=== PATIENT | male | born 1975 | race Caucasian/White ===

== ENCOUNTER → 2018-07-19 | Outpatient (CLI) | payer BC, OTHER ==
--- NOTE | 2018-07-19 08:09 | Diagnostic Imaging Report ---
PROCEDURE: US Gallbladder. TECHNIQUE: Multiple real-time grayscale images were obtained over the right upper quadrant in various projections. INDICATION: Epigastric pain. The liver parenchyma is homogeneous with normal echotexture. The gallbladder is clear with no stones or wall thickening. The common duct is not dilated. The portal vein is patent with hepatopetal flow. Right kidney measures 8.4 cm in length and appears grossly normal. There is no ascites. The pancreas is obscured by bowel gas. IMPRESSION: Negative gallbladder sonogram. Dictated by: Dictated on workstation # [id number]
== END ==
LOC: RAD 06:43
PROVIDERS: ATTEND Nurse Practitioner Community Health
DX: R10.13 Epigastric pain (principal)
CPT/HCPCS: 76705

== ENCOUNTER → 2018-08-03 | Outpatient (CLI) | payer OTHER ==
[~2018-08-03] MED LIST: CATHETER FLUSH 10 ML SYR IV PRN
--- NOTE | 2018-08-03 14:20 | Diagnostic Imaging Report ---
INDICATION: Epigastric pain. TECHNIQUE: Acquisitions were acquired of the abdomen after administration of 5.33 mCi of technetium-99m Choletec. FINDINGS: There is homogeneous uptake of the isotope throughout the liver. There is significant accumulation within the gallbladder by 30 minutes. There is free flow of activity in the small bowel. The ejection fraction is 36.6%. IMPRESSION: No evidence of cystic duct obstruction with lower limits of normal ejection fraction of 36.6%. Dictated by: Dictated on workstation # [id number]
== END ==
LOC: CARD 11:31
PROVIDERS: ATTEND Nurse Practitioner Community Health
DX: R10.13 Epigastric pain (principal)
CPT/HCPCS: 78227

== ENCOUNTER 2018-09-24 05:48 | Outpatient (CLI) | payer OTHER ==
[~2018-09-24] VITALS: Ht 175.3 cm; Wt 88.5 kg
[2018-09-24] MEDS ORDERED: MELO15TA39 PO (09:06)
[2018-09-24] MEDS ORDERED: TIZA4TAB4 PO (09:06)
[2018-09-24] MEDS ORDERED: PANT20TA3 PO (09:06)
[2018-09-24] MEDS ORDERED: GABA-488 PO (09:06)
== END 2018-09-24 09:22 | disposition home or self-care (01) ==
LOC: PREOP 05:48
PROVIDERS: ATTEND Surgery
DX: Z01.818 Encounter for other preprocedural examination (principal)

== ENCOUNTER 2018-10-03 07:04 | Day surgery (SDC) | payer OTHER ==
[~2018-10-03] VITALS: Ht 175.3 cm; Wt 88.5 kg
[2018-10-03] VITALS (11 sets, daily range): BP systolic 116–145; BP diastolic 63–121
[~2018-10-03 07:04] MED LIST changes: -CATHETER FLUSH 10 ML SYR IV PRN; +GABA-488 PO; +MELO15TA39 PO; +PANT20TA3 PO; +TIZA4TAB4 PO
[2018-10-03] MEDS ORDERED: IOPAMIDOL 61% 30 ML (ISOVUE 300) VIAL IV ONE (07:17)
[2018-10-03] MEDS ORDERED: BUP/EPI 0.5% 1:200,000 (MARCAINE) 10ML VIAL IJ ONE (07:17)
[2018-10-03] MEDS: LACTATED RINGERS 1,000 ML IV PRN ×2 (07:25→09:07)
[2018-10-03] MEDS ORDERED: CATHETER FLUSH 10 ML SYR IV PRN (07:30)
[2018-10-03] MEDS ORDERED: ceFAZolin 2 GM/50 ML NS 50 ML IV ONE (07:30)
[2018-10-03 07:34] LABS: BASOPHILS # (AUTO) 0.1 10^3/uL (0.0-0.1); BASOPHILS % (AUTO) 1 % (0-10); EOSINOPHILS % (AUTO) 1 % (0-10); HEMATOCRIT 44 % (40-54); HEMOGLOBIN 15.3 G/DL (13.3-17.7); LYMPHOCYTES # (AUTO) 2.3 X 10^3 (1.0-4.0); LYMPHOCYTES % (AUTO) 37 % (12-44); MEAN CORPUSCULAR HEMOGLOBIN 29 PG (25-34); MEAN CORPUSCULAR HGB CONC 35 G/DL (32-36); MEAN CORPUSCULAR VOLUME 84 FL (80-99); MEAN PLATELET VOLUME 9.4 FL (7.4-10.4); MONOCYTES # (AUTO) 0.5 X 10^3 (0.0-1.0); MONOCYTES % (AUTO) 7 % (0-12); NEUTROPHILS # (AUTO) 3.4 X 10^3 (1.8-7.8); NEUTROPHILS % (AUTO) 54 % (42-75); PLATELET COUNT 231 10^3/uL (130-400); RED CELL DISTRIBUTION WIDTH 12.2 % (10.0-14.5); WHITE BLOOD COUNT 6.2 10^3/uL (4.3-11.0)
--- NOTE | 2018-10-03 07:51 | Progress Note-Pre Operative ---
Pre-Operative Progress Note H&P Reviewed The H&P was reviewed, patient examined and no changes noted. Date Seen by Provider: Oct 03, 2018 Time Seen by Provider: 07:51 Date H&P Reviewed: Oct 03, 2018 Time H&P Reviewed: 07:51 Pre-Operative Diagnosis: epigastric abd pain, biliary dyskinesia BOLIVAR DIAL DO Oct 03, 2018 07:51
[2018-10-03] MEDS ORDERED: FAMOTIDINE 20MG/2ML IV (PEPCID) ONE (08:05)
[2018-10-03] MEDS ORDERED: FAMOTIDINE 20MG/2ML IV (PEPCID) IV ONE (08:30)
[2018-10-03] MEDS ORDERED: FAMOTIDINE 20MG/2ML IV (PEPCID) IVP ONE (08:30)
[2018-10-03] MEDS ORDERED: MIDAZOLAM 2 MG/2 ML (VERSED) VIAL ONE (08:37)
[2018-10-03] MEDS ORDERED: fentaNYL INJECTION 100 MCG/2 ML AMP ONE ×2 (08:37→09:37)
[2018-10-03] MEDS ORDERED: LIDOCAINE PF 2% 5 ML (XYLOCAINE) VIAL ONE (08:45)
[2018-10-03] MEDS ORDERED: ROCURONIUM 10 MG/ML 5 ML SYRINGE IV ONE (08:45)
[2018-10-03] MEDS ORDERED: DEXAMETHASONE 10 MG/ML (DECADRON) 1 ML VIAL ONE (08:45)
[2018-10-03] MEDS ORDERED: ONDANSETRON 4 MG/2 ML (SDV) Z0FRAN ONE (08:45)
[2018-10-03] MEDS ORDERED: SEVOFLURANE (ULTANE) 15 ML INHAL SOLN ONE ×4 (08:45→09:31)
[2018-10-03] MEDS ORDERED: proPOfol 200 MG/20 ML (DIPRIVAN) VIAL IV ONE (08:45)
--- NOTE | 2018-10-03 09:37 | Progress Note-Post Operative ---
Post-Operative Progess Note Surgeon (s)/Leather Flesher (s) Surgeon BOLIVAR DIAL DO Leather Flesher: Dr. Hanna Pre-Operative Diagnosis epigastric abd pain, biliary dyskinesia Post-Operative Diagnosis same Procedure & Operative Findings Date of Procedure 10/03/18 Procedure Performed/Findings lap glenroy c ioc Anesthesia Type gen Estimated Blood Loss Estimated blood loss (mL): min Specimens/Packing Specimens Removed gallbladder BOLIVAR DIAL DO Oct 03, 2018 09:37
[2018-10-03] MEDS ORDERED: DOCU-143 PO (09:38)
[2018-10-03] MEDS ORDERED: ACHD5005 PO (09:38)
--- NOTE | 2018-10-03 09:39 | Discharge Inst-Simple/Standard ---
Discharge Inst-Standard Discharge Medications New, Converted or Re-Newed RX: RX on Chart Patient Instructions/Follow Up Plan of Care/Instructions/FU: 2 weeks Lenka Activity as Tolerated: No Discharge Diet: Regular Diet Other Inst to Patient Follow up Appt: Make appointment for 2 weeks. Instructions: No lifting greater than 10 pounds. No strenuous activity. May shower in 24 hours, no tub bath or soaking. Use incentive spirometer at home as directed. No Smoking Skin/Wound Care: You have special glue over incisions it will fall off on its own. Symptoms to Report: Appetite Changes, Extremity Discoloration, Numbness/Tingling, Swelling Increased, Bleeding Excessive, Eyesight Changes, Pain Increased, Urine Color Change, Constipation(Persistent), Fever over 101 degree F, Pain/Pressure in chest, Urinating Difficulty, Cough Up/Vomit Blood, Heart Beat Irreg/Pounding, Pain/Pressure in jaw, Vaginal Bleeding Increase, Cramps in feet or legs, Lightheadedness, Pain/Pressure in shoulder, Diarrhea(Persistent), Memory Changes Suddenly, Questions/Concerns, Weight gain consecutive days, Dizziness/Fainting, Nausea/Vomiting, Shortness of Breath, Weight gain over 2 pounds. If eyes or skin turn yellow notify physician. If questions or concerns contact your physician Or seek help at emergency department. BOLIVAR DIAL DO Oct 03, 2018 09:39
[2018-10-03] MEDS ORDERED: HYDROmorphone 2 MG/ML VIAL (DILAUDID) ONE (09:51)
[2018-10-03] MEDS ORDERED: HYDROmorphone 2 MG/ML VIAL (DILAUDID) IV ONE (10:00)
[2018-10-03] MEDS ORDERED: ONDANSETRON 4 MG/2 ML (SDV) Z0FRAN IVP PRN (10:00)
[2018-10-03] MEDS ORDERED: morphine INJ 10 MG/ML 1ML (SYR OR VIAL) IVP ONE (10:00)
[2018-10-03] MEDS ORDERED: HYDROcodone/APAP 5 MG/325 MG (LORTAB) TAB PO ONE (12:15)
--- NOTE | 2018-10-03 12:24 | Diagnostic Imaging Report ---
Fluoroscopy INDICATION: Abdominal pain Fluoroscopic assistance was provided for Dr. Og during a laparoscopic cholecystectomy procedure. 12 seconds of fluoroscopy time was utilized. 27 spot films of the right upper quadrant were obtained. There are laparoscopic devices in place. There has been opacification of the common bile duct via a cyst duct catheter. Contrast is seen extending through the duct into the small bowel. The duct, where visualized shows no defect that would indicate a retained calculus. The proximal portion of the left biliary tree was obscured by one of the instruments however. IMPRESSION: Fluoroscopic assistance was provided for Dr. Og. Dictated by: Dictated on workstation # [id number]
--- NOTE | 2018-10-03 13:39 | Anesthesia-General Post-Op ---
General Patient Condition Mental Status/LOC: Same as Preop Cardiovascular: Satisfactory Nausea/Vomiting: Absent Respiratory: Satisfactory Pain: Controlled Complications: Absent Post Op Complications Complications None Follow Up Care/Instructions Patient Instructions None needed. Anesthesia/Patient Condition Patient Condition Patient is doing well, no complaints, stable vital signs, no apparent adverse anesthesia problems. No complications reported per nursing. APOORVA PICHARDO CRNA Oct 03, 2018 13:39
--- NOTE | 2018-10-03 14:03 | OPERATIVE REPORT ---
DATE OF SERVICE: 10/03/2018 PREOPERATIVE DIAGNOSES: Epigastric abdominal pain, biliary dyskinesia. POSTOPERATIVE DIAGNOSES: Epigastric abdominal pain, biliary dyskinesia. PROCEDURE: Laparoscopic cholecystectomy with intraoperative cholangiogram. SURGEON: Deshawn Og DO VOCAL MUSIC TEACHER: Dr. Hanna, assisted in retraction, dissection and closure. ANESTHESIA: General. ESTIMATED BLOOD LOSS: Minimal. COMPLICATIONS: None. INDICATIONS: The patient is a 43-year-old male with epigastric abdominal pain. Workup consistent with biliary dyskinesia. He understands risks and benefits of procedure and wished to proceed with procedure. Consent was signed in the chart. DESCRIPTION OF PROCEDURE: The patient was taken to the operating suite, prepped and draped in sterile fashion. Timeout was performed. Local anesthetic was infiltrated before incisions. A 12 mm incision was made just above the umbilicus. Cautery was used to dissect down to the fascia, which was then scored, grasped, elevated and the abdomen was entered. An 0 Vicryl was placed in a [id number] fashion for closure at the end of the case. Balloon trocar was inserted in the abdomen and pneumoperitoneum was achieved. Under direct visualization of the laparoscope, a 5 mm trocar was placed in subxiphoid region and two 5 mm trocars were placed in the right upper quadrant. Gallbladder was grasped, elevated. The cystic duct and cystic artery were then dissected out. Clips were placed on the proximal and distal portion of the cystic artery. A clip was placed on distal portion of the cystic duct and the duct was then partially transected. Arrow catheter was inserted into the duct and cholangiogram was performed. There were no filling defects. Contrast made its way into the duodenum without difficulty. Catheter was removed. Clips were placed on the proximal portion of the cystic duct and the duct and the artery were then completely transected. Hook cautery used to dissect the gallbladder from the gallbladder fossa achieving hemostasis. Once removed, it was placed in an Endobag and removed through the 12 mm trocar site. Abdomen was irrigated and suctioned with copious amounts of irrigation. Again, hemostasis was achieved. The abdomen was then desufflated, the trocars were removed. The 0 Vicryl was placed in a btiwez-ky-amwpe fashion for the closure at the 12 mm incision was then tied closing the defect. The skin was then closed using 4-0 Monocryl in a subcuticular fashion. The abdomen was then washed and dried and Skin Affix was placed over the incisions. The patient tolerated procedure well without any complications. He was taken to recovery room in stable condition. The patient will follow up in 2 weeks. Any issues before that will be seen at that time. Job ID: [id number] DocumentID: [id number] Dictated Date: 10/03/2018 09:49:42 Pharmacy Account Director Date: 10/03/2018 14:03:13 Dictated By: DO GABY ALVARADO
--- NOTE | 2018-10-03 14:56 | NUR ---
Support provided to the pt's , Madina,during pt's procedure. The pt's is an employee of [employer]. The family is [place]ae[place], and demonstrate strong, mutual support.
== END 2018-10-03 12:55 | disposition home or self-care (01) ==
LOC: SDC 07:04
PROVIDERS: ATTEND Surgery
DX: K81.1 Chronic cholecystitis (principal); K82.8 Other specified diseases of gallbladder; K21.9 Gastro-esophageal reflux disease without esophagitis; G89.29 Other chronic pain; M54.9 Dorsalgia, unspecified; M10.9 Gout, unspecified; I10 Essential (primary) hypertension; Z82.49 Family history of ischemic heart disease and other diseases of the circulatory system; Z80.9 Family history of malignant neoplasm, unspecified; Z83.6 Family history of other diseases of the respiratory system; Z79.891 Long term (current) use of opiate analgesic
CPT/HCPCS: 36415; 85025; 87081; 88304

== ENCOUNTER 2020-11-07 17:05 | Emergency (ER) | payer OTHER ==
[~2020-11-07] VITALS: Ht 175 cm; Wt 86.0 kg
[~2020-11-07 17:05] MED LIST changes: +ACHD5005 PO; +DOCU-143 PO; +PANT20TA18 PO; -PANT20TA3 PO
[2020-11-07] MEDS ORDERED: KETOROLAC 30 MG/ML VIAL IVP ONE (17:15)
[2020-11-07] MEDS ORDERED: NS IV 1000 ML 1,000 ML IV SCH (17:15)
--- NOTE | 2020-11-07 17:18 | ED GU-Male ---
General Stated Complaint: LOWER BACK/ABD/TESTICULAR PAIN Source: patient Exam Limitations: no limitations (GIANNA MOY APRN) History of Present Illness Date Seen by Provider: Nov 07, 2020 Time Seen by Provider: 17:16 Initial Comments to ER with midline low back pain that began rather suddenly yesterday. Today the pain persists but it has now spread to the anterior low abdomen and to both testicles. He has urinary frequency. No nausea vomiting fevers or chills no history of this. He has chronic loose stools after his cholecystectomy. Timing/Duration: constant Severity/Quality: moderate Location: unknown Radiation: none Activities at Onset: none Sexual Coxton History: not active Associated Symptoms: denies symptoms (GIANNA MOY APRN) Allergies and Home Medications Allergies Coded Allergies: No Known Drug Allergies (Unverified , 09/24/18) Patient Home Medication List Home Medication List Reviewed: Yes (GIANNA MOY APRN) Docusate Sodium (Colace) 100 Mg Capsule, 100 MG PO BID Prescribed by: BOLIVAR DIAL on 10/03/18 09 Gabapentin (Gabapentin) 300 Mg Capsule, 300 MG PO TID, (Reported) Entered as Reported by: MADAN MADRIGAL on 09/24/18 09 Hydrocodone Bit/Acetaminophen (Lortab 5 Mg Tablet) 1 Tab Tab, 1-2 TAB PO Q6H PRN for PAIN-MODERATE Prescribed by: BOLIVAR DIAL on 10/03/18 09 Hydrocodone/Acetaminophen (Hydrocodone-Acetamin 5-325 mg) 1 Each Tablet, 1 TAB PO Q4H PRN for PAIN-MODERATE (5-7) Prescribed by: GIANNA MOY on 11/08/20 123 Last Action: New Order Ibuprofen (Ibuprofen) 800 Mg Tablet, 800 MG PO Q8H PRN for PAIN-MILD Prescribed by: GIANNA MOY on 11/08/20 1230 Last Action: New Order Pantoprazole Sodium (Pantoprazole Sodium) 20 Mg Tablet.dr, 20 MG PO DAILY, (Reported) Entered as Reported by: MADAN MADRIGAL on 09/24/18 09 Sulfamethoxazole/Trimethoprim (Bactrim Ds Tablet) 1 Each Tablet, 1 EACH PO BID Prescribed by: GIANNA MOY on 11/08/20 1230 Last Action: New Order Tamsulosin HCl (Flomax) 0.4 Mg Cap, 0.4 MG PO DAILY Prescribed by: GIANNA MOY on 11/08/20 1230 Last Action: New Order Tizanidine HCl (Tizanidine HCl) 4 Mg Tablet, 6 MG PO BID, (Reported) Entered as Reported by: MADAN MADRIGAL on 09/24/18 0906 Review of Systems Review of Systems Constitutional: see HPI EENTM: see HPI Respiratory: no symptoms reported Cardiovascular: no symptoms reported Genitourinary: see HPI Musculoskeletal: no symptoms reported Skin: no symptoms reported Psychiatric/Neurological: No Symptoms Reported Endocrine: No Symptoms Reported Hematologic/Lymphatic: No Symptoms Reported (GIANNA MOY APRN) Past Yzdxgzq-Bnkivx-Ahzvbs Hx Seasonal Allergies Seasonal Allergies: Yes (GIANNA MOY APRN) Past Medical History Surgeries: No (tooth cut out) Respiratory: No Cardiac: No Neurological: No Genitourinary: Yes (horseshoe shaped kidneys) Gastrointestinal: Yes Gastroesophageal Reflux, Gall Bladder Disease Musculoskeletal: Yes Chronic Back Pain, Gout Endocrine: No HEENT: No Cancer: No Psychosocial: No Integumentary: No Blood Disorders: No (GIANNA MOY APRN) Physical Exam Vital Signs Vital Signs - First Documented 11/07/20 11/07/20 17:08 19:38 Temp 35.9 Pulse 90 Resp 18 B/P (MAP) 129/92 (104) Pulse Ox 96 O2 Delivery Room Air (BERNARDINO,MATTHEW K DO) Vital Signs Capillary Refill : (GIANNA MOY APRN) Height, Weight, BMI Height: 5'9.00" Weight: 195lbs. 0.0oz. 88.325072id; 28.8 BMI Method: General Appearance: WD/WN, no apparent distress HEENT: PERRL/EOMI, normal ENT inspection Neck: non-tender, full range of motion Respiratory: no respiratory distress, no accessory muscle use Gastrointestinal: normal bowel sounds, non tender, soft (GIANNA MOY APRN) Progress/Results/Core Measures Suspected Sepsis SIRS Temperature: Pulse: Respiratory Rate: Laboratory Tests 11/07/20 17:15: White Blood Count 9.2 Blood Pressure / Mean: Laboratory Tests 11/07/20 17:15: Creatinine 0.91, Platelet Count 262, Total Bilirubin 0.3 (GIANNA MOY APRN) Results/Orders Lab Results Laboratory Tests Test 11/07/20 17:15 11/07/20 18:01 Range/Units White Blood Count 9.2 4.3-11.0 10^3/uL Red Blood Count 5.22 4.30-5.52 10^6/uL Hemoglobin 15.4 13.3-17.7 g/dL Hematocrit 45 40-54 % Mean Corpuscular Volume 87 80-99 fL Mean Corpuscular Hemoglobin 30 25-34 pg Mean Corpuscular Hemoglobin Concent 34 32-36 g/dL Red Cell Distribution Width 11.6 10.0-14.5 % Platelet Count 262 130-400 10^3/uL Mean Platelet Volume 9.1 9.0-12.2 fL Immature Granulocyte % (Auto) 0 % Neutrophils (%) (Auto) 64 42-75 % Lymphocytes (%) (Auto) 28 12-44 % Monocytes (%) (Auto) 6 0-12 % Eosinophils (%) (Auto) 1 0-10 % Basophils (%) (Auto) 1 0-10 % Neutrophils # (Auto) 5.9 1.8-7.8 10^3/uL Lymphocytes # (Auto) 2.6 1.0-4.0 10^3/uL Monocytes # (Auto) 0.5 0.0-1.0 10^3/uL Eosinophils # (Auto) 0.1 0.0-0.3 10^3/uL Basophils # (Auto) 0.1 0.0-0.1 10^3/uL Immature Granulocyte # (Auto) 0.0 0.0-0.1 10^3/uL Sodium Level 140 135-145 MMOL/L Potassium Level 3.8 3.6-5.0 MMOL/L Chloride Level 104 98-107 MMOL/L Carbon Dioxide Level 24 21-32 MMOL/L Anion Gap 12 5-14 MMOL/L Blood Urea Nitrogen 10 7-18 MG/DL Creatinine 0.91 0.60-1.30 MG/DL Estimat Glomerular Filtration Rate 91 BUN/Creatinine Ratio 11 Glucose Level 105 70-105 MG/DL Calcium Level 9.3 8.5-10.1 MG/DL Corrected Calcium 9.1 8.5-10.1 MG/DL Total Bilirubin 0.3 0.1-1.0 MG/DL Aspartate Amino Transf (AST/SGOT) 14 5-34 U/L Alanine Aminotransferase (ALT/SGPT) 18 0-55 U/L Alkaline Phosphatase 75 40-136 U/L Total Protein 7.0 6.4-8.2 GM/DL Albumin 4.2 3.2-4.5 GM/DL Urine Color YELLOW Urine Clarity CLEAR Urine pH 6.5 5-9 Urine Specific Wise 1.015 L 1.016-1.022 Urine Protein NEGATIVE NEGATIVE Urine Glucose (UA) NEGATIVE NEGATIVE Urine Ketones NEGATIVE NEGATIVE Urine Nitrite NEGATIVE NEGATIVE Urine Bilirubin NEGATIVE NEGATIVE Urine Urobilinogen 0.2 < = 1.0 MG/DL Urine Leukocyte Esterase NEGATIVE NEGATIVE Urine RBC (Auto) 3+ H NEGATIVE Urine RBC 25-50 H /HPF Urine WBC NONE /HPF Urine Crystals NONE /LPF Urine Bacteria NEGATIVE /HPF Urine Casts NONE /LPF Urine Mucus NEGATIVE /LPF Urine Culture Indicated NO (MATTHEW LEBRON DO) Vital Signs/I&O 11/07/20 11/07/20 17:08 19:38 Temp 35.9 Pulse 90 90 Resp 18 16 B/P (MAP) 129/92 (104) 128/94 Pulse Ox 96 99 O2 Delivery Room Air (MATTHEW LEBRON DO) Vital Signs/I&O Capillary Refill : (GIANNA MOY APRN) Departure Communication (Admissions) Family Conversation NAME: MISHA NICE [facility] REC#: [id number] PT STATUS: REG ER : 1975 PHYSICIAN: GIANNA MOY APRN ADMIT DATE: 11/07/20/ER Draft Date of Exam:11/07/20 CT ABD/PELVIS WO(KIDNEY STONE) PROCEDURE: CT urinary tract, rule out kidney stone. TECHNIQUE: Multiple contiguous axial images were obtained through the abdomen and pelvis without the use of intravenous contrast. Auto Exposure Controls were utilized during the CT exam to meet ALARA standards for radiation dose reduction. INDICATION: Bilateral flank pain, worse on the right. Known horseshoe kidney. CORRELATION STUDY: None. FINDINGS: LOWER THORAX: Clear. LIVER: Unremarkable. GALLBLADDER: Post cholecystectomy. No bile ductal dilatation. SPLEEN: Unremarkable. PANCREAS: Unremarkable. ADRENAL GLANDS: Unremarkable. KIDNEYS: Horseshoe configuration of the kidneys. Small bilateral nonobstructing renal stones are present. Mild asymmetric dilatation of the right ureter with presence of a 5 mm distal right ureteral stone just proximal to the UVJ. Left ureter unremarkable. ABDOMINAL AORTA: Unremarkable, nonaneurysmal. GASTROINTESTINAL TRACT: Stomach is distended with fluid and retained gastric contents. No small bowel obstruction. Colon with mild stool. Normal appendix present. No abdominal ascites and/or free air. URINARY BLADDER: Decompressed but appears generally unremarkable. REPRODUCTIVE: Unremarkable. OSSEOUS STRUCTURES: Very mild scoliotic curvature of the visualized thoracolumbar spine with multifocal areas of asymmetric disc space narrowing and osteophyte formation. OTHER: None. IMPRESSION: 1. Horseshoe configuration of the kidney with multiple nonobstructing bilateral renal stones. 2. Approximately 5 mm stone in distal right ureter results in mild obstruction. Dictated on workstation # [id number] Dict: 11/07/201841 Trans: 11/07/201849 PJE [id number] Interpreted by: ENRIQUE MUNROE DO Electronically signed by: [id number]-has some severe mid epigastric pain after the administration of morphine. 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 Will give some fentanyl. 1913-fentanyl did not help the pain. Sublingual nitroglycerin was given which did completely resolve the pain. (GIANNA MOY APRN) Impression Primary Impression: Kidney stone Disposition: HOME, SELF-CARE Condition: Stable Departure-Patient Inst. Decision time for Depature: 18:04 (GIANNA MOY APRN) Referrals: [facility] [place] (PCP/Family) Primary Care Physician AYUSH CAMACHO MD Patient Instructions: How to Strain Your Urine, Kidney Stone, Adult ED, Flank Pain ED Add. Discharge Instructions: 1. Increase fluid intake. Strain all of your urine, you will be able to see the stone when you pass it. If you have not passed it by Monday then call Dr. Camacho from urology for an appointment on Monday or Monday. Return to ER for vomiting intolerable pain or fevers Scripts Ibuprofen (Ibuprofen) 800 Mg Tablet 800 MG PO Q8H PRN for PAIN-MILD, #20 TAB Prov: GIANNA MOY APRN 11/08/20 Hydrocodone/Acetaminophen (Hydrocodone-Acetamin 5-325 mg) 1 Each Tablet 1 TAB PO Q4H PRN for PAIN-MODERATE (5-7), #14 TAB . Prov: GIANNA MOY APRN 11/08/20 Tamsulosin HCl (Flomax) 0.4 Mg Cap 0.4 MG PO DAILY, #10 CAP . Prov: GIANNA MOY APRN 11/08/20 Sulfamethoxazole/Trimethoprim (Bactrim Ds Tablet) 1 Each Tablet 1 EACH PO BID, #5 TAB . Prov: GIANNA MOY APRN 11/08/20 ATTENDING PHYSICIAN NOTE: I WAS PHYSICALLY PRESENT ER PHYSICIAN WHEN THIS PATIENT WAS IN ER, BUT I WAS NOT INVOLVED IN DECISION MAKING OR ANY CARE OF THIS PATIENT. (MATTHEW LEBRON DO) GIANNA MOY APRN Nov 07, 2020 17:17 MATTHEW LEBRON DO Nov 09, 2020 04:35
[2020-11-07 17:24] LABS: BASOPHILS # (AUTO) 0.1 10^3/uL (0.0-0.1); BASOPHILS % (AUTO) 1 % (0-10); EOSINOPHILS # (AUTO) 0.1 10^3/uL (0.0-0.3); EOSINOPHILS % (AUTO) 1 % (0-10); HEMATOCRIT 45 % (40-54); HEMOGLOBIN 15.4 g/dL (13.3-17.7); LYMPHOCYTES # (AUTO) 2.6 10^3/uL (1.0-4.0); LYMPHOCYTES % (AUTO) 28 % (12-44); MEAN CORPUSCULAR HEMOGLOBIN 30 pg (25-34); MEAN CORPUSCULAR HGB CONC 34 g/dL (32-36); MEAN CORPUSCULAR VOLUME 87 fL (80-99); MEAN PLATELET VOLUME 9.1 fL (9.0-12.2); MONOCYTES # (AUTO) 0.5 10^3/uL (0.0-1.0); MONOCYTES % (AUTO) 6 % (0-12); NEUTROPHILS # (AUTO) 5.9 10^3/uL (1.8-7.8); NEUTROPHILS % (AUTO) 64 % (42-75); PLATELET COUNT 262 10^3/uL (130-400); WHITE BLOOD COUNT 9.2 10^3/uL (4.3-11.0)
[2020-11-07 17:34] LABS: ALBUMIN 4.2 GM/DL (3.2-4.5)
[2020-11-07 17:35] LABS: POTASSIUM 3.8 MMOL/L (3.6-5.0)
[2020-11-07 17:36] LABS: CALCIUM 9.3 MG/DL (8.5-10.1)
[2020-11-07 17:39] LABS: BILIRUBIN,TOTAL 0.3 MG/DL (0.1-1.0)
[2020-11-07 17:41] LABS: CREATININE SERUM 0.91 MG/DL (0.60-1.30)
[2020-11-07 18:07] LABS: BILIRUBIN,URINE NEGATIVE (NEGATIVE); CLARITY,URINE CLEAR; COLOR,URINE YELLOW; GLUCOSE, URINE (UA) NEGATIVE (NEGATIVE); KETONES,URINE NEGATIVE (NEGATIVE); LEUKOCYTE ESTERASE ,URINE NEGATIVE (NEGATIVE); NITRITE,URINE NEGATIVE (NEGATIVE); PH,URINE 6.5 (5-9); PROTEIN,URINE NEGATIVE (NEGATIVE)
[2020-11-07] MEDS ORDERED: morphine INJ 10 MG/ML 1ML (SYR OR VIAL) IVP STA (18:15)
[2020-11-07] MEDS ORDERED: TRIM/SULFAMETH 160/800 (SEPTRA DS) TAB PO ONE (18:15)
[2020-11-07] MEDS ORDERED: TAMSULOSIN 0.4 MG (FLOMAX) CAP PO SCH (18:15)
[2020-11-07] MEDS ORDERED: morphine INJ 10 MG/ML 1ML (SYR OR VIAL) ONE (18:17)
--- NOTE | 2020-11-07 18:17 | Diagnostic Imaging Report ---
INDICATION: Kidney stone. TECHNIQUE: Two supine view of the abdomen 5:47 PM CORRELATION STUDY: None. FINDINGS: The kidneys appear dense over the midline consistent with known horseshoe configuration. There are single small calcifications over bilateral hemipelvis. On the right measuring up to 4 mm and on the left 2 mm. Overlying bowel gas pattern with moderate stool. IMPRESSION: Density in the kidneys is located centrally consistent with horseshoe configuration. Small calcification of bilateral hemipelves present and somewhat indeterminate but could very well reflect distal ureteral stone. Dictated by: Dictated on workstation # [id number]
[2020-11-07 18:18] LABS: BACTERIA,URINE NEGATIVE /HPF; RBC,URINE 25-50 /HPF
[2020-11-07] MEDS ORDERED: ACHD5005 PO (18:18)
[2020-11-07] MEDS ORDERED: TMSL.4C PO (18:18)
[2020-11-07] MEDS ORDERED: SULF1TAB38 PO (18:18)
--- NOTE | 2020-11-07 18:51 | Diagnostic Imaging Report ---
PROCEDURE: CT urinary tract, rule out kidney stone. TECHNIQUE: Multiple contiguous axial images were obtained through the abdomen and pelvis without the use of intravenous contrast. Auto Exposure Controls were utilized during the CT exam to meet ALARA standards for radiation dose reduction. INDICATION: Bilateral flank pain, worse on the right. Known horseshoe kidney. CORRELATION STUDY: None. FINDINGS: LOWER THORAX: Clear. LIVER: Unremarkable. GALLBLADDER: Post cholecystectomy. No bile ductal dilatation. SPLEEN: Unremarkable. PANCREAS: Unremarkable. ADRENAL GLANDS: Unremarkable. KIDNEYS: Horseshoe configuration of the kidneys. Small bilateral nonobstructing renal stones are present. Mild asymmetric dilatation of the right ureter with presence of a 5 mm distal right ureteral stone just proximal to the UVJ. Left ureter unremarkable. ABDOMINAL AORTA: Unremarkable, nonaneurysmal. GASTROINTESTINAL TRACT: Stomach is distended with fluid and retained gastric contents. No small bowel obstruction. Colon with mild stool. Normal appendix present. No abdominal ascites and/or free air. URINARY BLADDER: Decompressed but appears generally unremarkable. REPRODUCTIVE: Unremarkable. OSSEOUS STRUCTURES: Very mild scoliotic curvature of the visualized thoracolumbar spine with multifocal areas of asymmetric disc space narrowing and osteophyte formation. OTHER: None. IMPRESSION: 1. Horseshoe configuration of the kidney with multiple nonobstructing bilateral renal stones. 2. Approximately 5 mm stone in distal right ureter results in mild obstruction. Dictated by: Dictated on workstation # [id number]
[2020-11-07] MEDS ORDERED: fentaNYL INJ 100 MCG/2 ML AMP ONE (18:52)
[2020-11-07] MEDS ORDERED: NITROGLYCERIN 0.4 MG SL TABS BTL 25'S SL PRN (19:00)
[2020-11-07] MEDS ORDERED: fentaNYL INJ 100 MCG/2 ML AMP IVP ONE (19:00)
[2020-11-07] MEDS ORDERED: NITROGLYCERIN 0.4 MG SL TABS BTL 25'S SL ONE (19:02)
[2020-11-07 19:38] VITALS: BP 128/94
[2020-11-08] MEDS ORDERED: TMSL.4C PO (12:30)
[2020-11-08] MEDS ORDERED: SULF1TAB38 PO (12:30)
[2020-11-08] MEDS ORDERED: IBUP-1780 PO (12:30)
[2020-11-08] MEDS ORDERED: ACHD5005 PO (12:30)
== END 2020-11-07 19:40 | disposition home or self-care (01) ==
LOC: EDUNIT# 17:05 → ER 17:07
DX: N20.0 Calculus of kidney (principal); K21.9 Gastro-esophageal reflux disease without esophagitis; G89.29 Other chronic pain; M54.9 Dorsalgia, unspecified; Z90.49 Acquired absence of other specified parts of digestive tract; Z79.899 Other long term (current) drug therapy; Z79.891 Long term (current) use of opiate analgesic
CPT/HCPCS: 36415; 74018; 74176; 80053; 81000; 85025

== ENCOUNTER → 2020-11-11 | Outpatient (CLI) | payer OTHER ==
[~2020-11-11] MED LIST changes: +IBUP-1780 PO; +SULF1TAB38 PO; +TMSL.4C PO
--- NOTE | 2020-11-11 14:04 | Diagnostic Imaging Report ---
EXAMINATION: Abdomen 1 view HISTORY: Right ureteral stone COMPARISON: 11/07/2020 FINDINGS: There is a moderate amount of gas and stool throughout the colon. Nonobstructive bowel gas pattern. No radiopaque foreign body. The lung bases are clear. The osseous structures are intact. IMPRESSION: Moderate stool burden without other acute abnormality in the abdomen. No radiopaque renal calculi are seen on this exam. Dictated by: Dictated on workstation # [id number]
== END ==
LOC: RAD 12:30
PROVIDERS: ATTEND Urology
DX: N20.1 Calculus of ureter (principal)
CPT/HCPCS: 74018

== ENCOUNTER → 2021-05-26 | Outpatient (CLI) | payer OTHER ==
[~2021-05-26] MED LIST changes: +TIZA-186 PO; -TIZA4TAB4 PO
--- NOTE | 2021-05-26 14:53 | Diagnostic Imaging Report ---
INDICATION: Mid and lower spine pain. No known injury. COMPARISON: None. TECHNIQUE: Multiplanar, multisequence noncontrast MRI examination of the thoracic spine. FINDINGS: The thoracic spine demonstrates right convex curvature of the midportion. There is left convex curvature of the upper thoracic spine. There is no spondylolisthesis seen. Vertebral body heights are preserved. No acute fracture is seen. There is mild multilevel disc height loss and multilevel disc bulges. There is no spinal canal stenosis. No spinal cord lesions or abnormal signal is seen. There is no significant foraminal stenosis. Soft tissues about the thoracic spine demonstrate no acute abnormality. IMPRESSION: Scoliotic curvature and mild degenerative changes throughout the thoracic spine. No spinal canal or foraminal stenosis. No spinal cord lesions are seen. Dictated by: Dictated on workstation # [id number]
--- NOTE | 2021-05-26 15:03 | Diagnostic Imaging Report ---
PROCEDURE: MRI lumbar spine. TECHNIQUE: Multiplanar, multisequence MRI of the lumbar spine was performed without contrast. DATE: May 26, 2021. COMPARISON: CT abdomen and pelvis November 07, 2020. INDICATION: 46-year-old male, mid and low back pain. FINDINGS: There is a thoracic dextrocurvature. The anterior to posterior alignment of the imaged thoracolumbar spine is unremarkable. There is no evidence of a diffuse marrow infiltrating or replacing process. There is no identified focal concerning bone lesion. There is no compression deformity or fracture. There is no visualized pars interarticularis defect. The visualized cord and conus medullaris is unremarkable and terminates at the L1-L2 level. There are mild disc degenerative changes at T11-T12. There is an annular tear at this level with tiny posterior disc protrusion, no foraminal narrowing, and no spinal stenosis. 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 L1-L2: There is a small left lateral recess/foraminal disc protrusion without identified nerve root contact. There is mild narrowing of the left lateral recess. The facet joints and ligamentum flavum are unremarkable. There is no high-grade foraminal narrowing. There is no spinal canal stenosis. L2-L3: There is no disc bulge. The facet joints and ligamentum flavum are unremarkable. There is no foraminal narrowing. There is no spinal canal stenosis. L3-L4: There is an annular tear and small right foraminal/far lateral disc protrusion without nerve root contact. The facet joints and ligamentum flavum are unremarkable. There is no foraminal narrowing. There is no spinal canal stenosis. L4-L5: There is no disc bulge. The facet joints and ligamentum flavum are unremarkable. There is no foraminal narrowing. There is no spinal canal stenosis. L5-S1: There is mild diffuse disc bulge. The facet joints and ligamentum flavum are unremarkable. There is very mild left foraminal narrowing. There is no spinal canal stenosis. IMPRESSION: 1. Small left lateral recess/foraminal disc protrusion at L1-L2 with mild narrowing of the left lateral recess. 2. L3-L4 annular tear with small right foraminal/far lateral disc protrusion without nerve root contact, foraminal narrowing or spinal stenosis. 3. Mild diffuse disc bulge at L5-S1 with very mild left foraminal narrowing. 4. No focal concerning bone lesion, compression deformity or fracture. 5. Thoracic levocurvature. 6. Incidental note of horseshoe kidneys. Dictated by: Dictated on workstation # [id number]
== END ==
LOC: RAD 13:26
PROVIDERS: ATTEND Nurse Practitioner
DX: M47.814 Spondylosis without myelopathy or radiculopathy, thoracic region (principal); M51.26 Other intervertebral disc displacement, lumbar region; M51.27 Other intervertebral disc displacement, lumbosacral region; M51.36 Other intervertebral disc degeneration, lumbar region; M43.8X4 Other specified deforming dorsopathies, thoracic region; Q63.1 Lobulated, fused and horseshoe kidney
CPT/HCPCS: 72146; 72148

== ENCOUNTER → 2021-06-02 | Outpatient (CLI) | payer OTHER ==
--- NOTE | 2021-06-02 09:52 | Diagnostic Imaging Report ---
PROCEDURE: MR imaging cervical spine without contrast. TECHNIQUE: Multiplanar, multisequence MR imaging of the cervical spine was performed without contrast. INDICATION: Neck pain, scoliosis. COMPARISON: None. FINDINGS: Alignment of the cervical spine appears normal with no spondylolisthesis. Vertebral body heights are preserved. There is mild disc height loss at C3-C4 and C6-C7. There is a T2 hyperintense lesion of C4 with T1 hypointensity and is thought to be most likely degenerative. There is no cortical breach. Soft tissues about the cervical spine demonstrate no acute abnormality. No focal lesions are seen in the spinal cord. C2-C3: Uncovertebral arthropathy. Mild facet arthropathy. Moderate left foraminal stenosis. No right foraminal or spinal canal stenosis. C3-C4: Posterior disc/osteophyte complex with small right paracentral disc protrusion which narrows the right spinal canal resulting in moderate spinal canal stenosis and significant mass effect on the anterior right spinal cord. There are no cord signal changes present. There is moderate right and moderate to severe left foraminal stenosis. C4-C5: Posterior disc/osteophyte complex. Mild spinal canal narrowing. Mild bilateral foraminal narrowing. C5-C6: Posterior disc/osteophyte complex. No spinal canal stenosis. No right foraminal stenosis. Mild left foraminal narrowing. C6-C7: Posterior disc/osteophyte complex with mild spinal canal narrowing. Mild left foraminal narrowing. No right foraminal stenosis. C7-T1: Left uncovertebral arthropathy with mild left foraminal narrowing. No right foraminal or spinal canal stenosis. T1-T2: Endplate osteophytes. No spinal canal or foraminal stenosis. IMPRESSION: 1. Degenerative changes in the cervical spine. This includes a right paracentral disc extrusion at C3-C4 which causes significant mass effect on the anterior right spinal canal but there are no cord signal changes. 2. Multilevel spinal canal and foraminal stenosis as described above. 3. T2 bright lesion of C4. This is thought to be degenerative, particularly given the adjacent disc changes. Atypical hemangioma is in the differential. Features do not appear aggressive but other etiologies are not excluded. Consider followup with CT or a 3 month followup with MRI. Dictated by: Dictated on workstation # [id number]
== END ==
LOC: RAD 08:00
PROVIDERS: ATTEND Nurse Practitioner
DX: M41.82 Other forms of scoliosis, cervical region (principal); M50.21 Other cervical disc displacement, high cervical region; M50.31 Other cervical disc degeneration, high cervical region; M48.03 Spinal stenosis, cervicothoracic region; M47.813 Spondylosis without myelopathy or radiculopathy, cervicothoracic region
CPT/HCPCS: 72141

== ENCOUNTER → 2021-12-06 | Outpatient (RCR) | payer OTHER | END | disposition home or self-care (01) | PROVIDERS: ATTEND Registered Nurse | DX: M54.12 Radiculopathy, cervical region (principal); M54.16 Radiculopathy, lumbar region; M75.41 Impingement syndrome of right shoulder; M89.38 Hypertrophy of bone, other site ==

== ENCOUNTER 2021-12-22 08:00 | Outpatient (RCR) | payer OTHER | END 2022-01-05 | disposition home or self-care (01) | PROVIDERS: ATTEND Registered Nurse | DX: M75.41 Impingement syndrome of right shoulder (principal); M89.38 Hypertrophy of bone, other site ==